=== PATIENT | male | born 1955 ===

== ENCOUNTER 2016-09-24 17:18 | Emergency (ER) | payer OTHER ==
[2016-09-24 17:42] VITALS: BP 167/90; PULSE 77; RESP 14; TEMP 98.6; O2SAT 96
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
--- NOTE | 2016-09-25 09:58 | RAD ---
PROCEDURE: Radiographs of the Right Shoulder HISTORY: Pain. No history of recent/ related trauma provided COMPARISON: No prior. FINDINGS: BONES: Hill-Sachs deformity humeral head likely related to old, prior shoulder dislocation. JOINTS: Preserved glenohumeral relationship, acromioclavicular degenerative change: Mild. SOFT TISSUES: Normal. OTHER FINDINGS: None. IMPRESSION: No acute findings related to/accounting for the clinical presentation. Concordant results with the preliminary interpretation rendered by the emergency department physician procedure.
--- NOTE | 2016-09-25 10:00 | RAD ---
PROCEDURE: Right Hip Radiographs. HISTORY: Pain. No history of recent/ related trauma provided COMPARISON: None. FINDINGS: BONES: Normal. No fracture. JOINTS: Normal. SOFT TISSUES: Normal. OTHER FINDINGS: None. IMPRESSION: No significant or acute findings to account for/ related to the clinical presentation. Concordant results with the preliminary interpretation rendered by the emergency department physician procedure.
== END 2016-09-24 20:02 | disposition home or self-care (01) ==
LOC: C.ER 17:18
DX: S46.911A Strain of unspecified muscle, fascia and tendon at shoulder and upper arm level, right arm, initial encounter (principal); S70.01XA Contusion of right hip, initial encounter; V89.2XXA Person injured in unspecified motor-vehicle accident, traffic, initial encounter
CPT/HCPCS: 73030; 73502; 96372; 99284; J1885